=== PATIENT | female | born 1985 | race Caucasian/White ===

== ENCOUNTER → 2023-02-12 13:27 | Outpatient (BNVA) | payer MEDICAID, SELFPAY | PROVIDERS: Family Provider Nurse Practitioner Family; PCP Nurse Practitioner Family; Visit Provider Podiatrist Foot & Ankle Surgery | DX: M21.6X2 Other acquired deformities of left foot; M72.2 Plantar fascial fibromatosis | CPT/HCPCS: 73630 ==